=== PATIENT | female | born 1980 | race Caucasian/White ===

== ENCOUNTER 2024-12-01 08:14 | Emergency (ER) | payer SELFPAY ==
[2024-12-01 08:18] VITALS: BP 169/87; PULSE 78; RESP 20; TEMP 36.3; O2SAT 98
--- NOTE | 2024-12-01 08:19 | XR_ITS ---
WS: [id number] Exam: XR hip LT 2-3V wo/w pel* [id number] Date/Time of Exam: 12/01/2024 8:21 AM Reason For Exam: hip pain There is ill-defined osseous destruction of the upper metadiaphysis of the RIGHT femur. A pathologic nondisplaced fracture is noted. There is periosteal calcification and possible associated soft tissue mass. Differential considerations would include metastatic disease, primary bone malignancy or osteomyelitis. The hip joint itself is preserved. XR/XR hip LT 2-3V wo/w pel* [id number] IMPRESSION: 1. Ill-defined area of osseous destruction involving the upper metadiaphysis of the femur with periosteal calcification and probable associated soft tissue ma ss. There appears to be a nondisplaced pathologic fracture through this area. D ifferential considerations would include metastatic disease, primary bone malig sailaja or osteomyelitis.
--- NOTE | 2024-12-01 08:20 | W.ED.BACK ---
HPI - Back Pain/Injury General: Chief Complaint: Back Pain/Injury Stated Complaint: Lower Back Pain LT HipPain Time Seen by Provider: 12/01/24 08:17 Source: patient and EMS Mode of arrival: EMS Limitations: no limitations History of Present Illness: 44-year-old female states she been having worsening back pain over the last month. States that the lower back goes down her left side she is actually scheduled for an MRI in [place] today states that when she got up her pain was severe 10 out of 10 has been having some weakness in her left leg denies any fever denies any bowel or bladder incontinence Associated symptoms: Deny abdominal pain, chills, fever(s), nausea or vomiting Related Data Home Medications ?Medication ?Instructions ?Recorded ?Confirmed Kristina's Restful Legs 2 tab sublingual PRN PRN RESTLESS 12/01/24 12/01/24 LEGS Kristina's Restful Legs Pm 2 tab sublingual QPM PRN LEG CRAMPS 12/01/24 12/01/24 clonazepam 1 mg tablet 1 mg PO DAILY PRN Anxiety 12/01/24 12/01/24 ibuprofen 800 mg tablet 800 mg PO Q6H PRN Pain 12/01/24 12/01/24 magnesium glycinate 100 mg (as 100 mg PO BID 12/01/24 12/01/24 glycinate) tablet omega 4-rdj-hzy-fish oil 60 mg-90 1 cap PO DAILY 12/01/24 12/01/24 mg-500 mg capsule (Fish Oil) tizanidine 4 mg tablet 4 mg PO QID PRN Pain 12/01/24 12/01/24 turmeric 400 mg capsule 1 mg PO BID 12/01/24 12/01/24 Review of Systems Const: Denies: fever(s), chills, body aches or change in appetite ENMT: Denies: throat pain or dental pain Card: Denies: chest pain Resp: Denies: dyspnea GI: Denies: abdominal pain, nausea, vomiting or diarrhea Musc: Reports: back pain; Denies: neck pain Skin/Breast: Denies: rash Neuro: Denies: headache(s) Physical Exam Const: COMMON NORMALS: no acute distress, patient oriented x3 and healthy appearing HENMT: COMMON NORMALS: normocephalic and atraumatic HEAD & SCALP: normocephalic and atraumatic Eye: COMMON NORMALS: conjunctivae normal CONJUNCTIVA: Yes conjunctivae normal Neck/C-Spine: COMMON NORMALS: full ROM and supple Chest: COMMONS NORMALS: normal inspection of the chest Resp: COMMON NORMALS: normal respiratory effort and No use of accessory muscles Cardio: COMMON NORMALS: regular rate RATE: regular rate Back/Pelvis: OTHER: Tenderness noted left lower back distal pulses of the left leg intact sensations intact Extremity: COMMON NORMALS: normal to inspection and full ROM Neuro: COMMON NORMALS: patient oriented x3, moves all extremities and no focal motor deficits Psych: COMMON NORMALS: mental status grossly normal, Normal thought process present and cooperative THOUGHT PROCESS: Normal thought process present Skin: COMMON NORMALS: no rashes or lesions noted and no wounds GENERAL SKIN EXAM: no rashes or lesions noted Course Vital Signs: Vital signs: Vital Signs Temperature 97.4 F L 12/01/24 08:18 Pulse Rate 93 12/01/24 11:55 Respiratory Rate 20 H 12/01/24 08:18 Blood Pressure 162/87 12/01/24 11:55 Pulse Oximetry 96 12/01/24 11:55 Oxygen Delivery Me thod Room Air 12/01/24 08:18 MDM - Back Pain/Injury Medical Decision Making Patient presents here with a pathologic left hip fracture did scan her belly has a large ovarian mass likely primary liver mets mets to the spine she has no signs of cord compression I spoke to orthopedist here she likely needs [facility] [place] [facility] who also stated she likely need to go to [facility] I did speak to orthopedics [facility] who is excepting at this time there is a 1 to 2-day wait for bed will admit here in the meantime Medical Records I reviewed the patient's medical records. Labs I reviewed the patient's lab results. 12/01/24 09:04 12/01/24 09:04 Radiology Impressions Hip/Pelvis X-Ray 12/01/24 08:19 IMPRESSION: 1. Ill-defined area of osseous destruction involving the upper metadiaphysis of the femur with periosteal calcification and probable associated soft tissue mass. There appears to be a nondisplaced pathologic fracture through this area. Differential considerations would include metastatic disease, primary bone malignancy or osteomyelitis. Hip CT 12/01/24 08:33 IMPRESSION: 1. Pathological fracture involving the proximal third LEFT femur. 2. Large permeative bone lesion extending over a length of at least 10 cm with extension into the lesser trochanter. Bony expansion with loss of the normal cortex and medullary cavity. Differential includes includes primary bone lesion and metastatic disease. Less likely infection. In this age group likely metastasis. 3. Complex mass partially visualized in the pelvis. Suspect ovarian in etiology. Incompletely visualized mass measures 11 x 13 cm. Suspect ovarian mass until proven otherwise. Consider additional CT abdomen and pelvis follow-up with IV and oral contrast. 4. Additional permeative lesion likely within the sacrum. Abdomen/Pelvis CT 12/01/24 09:25 IMPRESSION: 1. Marked hepatomegaly with diffuse metastatic liver disease. 2. Multiloculated cystic mass with irregular, nodular enhancing septations in the pelvis. Mass measures 16.6 x 11.3 x 13.0 cm. Separate ovaries are not identified. 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 3. No ascites. 4. Extensive bony metastasis. Metastatic changes throughout the lumbar spine and lower thoracic spine, pelvis and LEFT femur. 5. Along with the lytic destructive changes in the lumbar vertebral bodies there is soft tissue mass greatest at L2 and L3 with tumor extending into the psoas muscle. Suspect tumor encroachment into the LEFT L3-4 foramen. No cord compression identified by CT. Laboratory Results WBC 7.00 10^3/uL (3.29-11.43) 12/01/24 09:04 RBC 3.70 10^6/uL (3.85-5.65) L 12/01/24 09:04 Hgb 10.10 g/dL (11.27-16.99) L 12/01/24 09:04 Hct 31.8 % (36-47) L 12/01/24 09:04 MCV 85.9 fl (85-98) 12/01/24 09:04 MCH 27.3 pg (27-33) 12/01/24 09:04 MCHC 31.8 g/dL (30-55) 12/01/24 09:04 RDW 15.3 % (12.1-15.1) H 12/01/24 09:04 Plt Count 276 10^3/cmm (157-399) 12/01/24 09:04 MPV 11.0 fL (7.4-10.4) H 12/01/24 09:04 Neut % (Auto) 73.8 % 12/01/24 09:04 Lymph % (Auto) 13.4 % 12/01/24 09:04 Fajardo % (Auto) 9.1 % 12/01/24 09:04 Eos % (Auto) 0.4 % 12/01/24 09:04 Baso % (Auto) 0.4 % 12/01/24 09:04 Neut # (Auto) 5.16 10^3/uL (1.8-7.7) 12/01/24 09:04 Lymph # (Auto) 0.9 10^3/uL (0.8-4.8) 12/01/24 09:04 Fajardo # (Auto) 0.6 10^3/uL (0.2-0.9) 12/01/24 09:04 Eos # (Auto) 0.0 10^3/uL (0.0-0.8) 12/01/24 09:04 Baso # (Auto) 0.0 10^3/uL (0.0-0.1) 12/01/24 09:04 Nucleated RBC % (auto) 0 % 12/01/24 09:04 Nucleated RBCs # 0.0 /100WBC 12/01/24 09:04 PT 14.40 SECONDS (12.1-14.9) 12/01/24 09:04 INR 1.04 (0.8-1.2) 12/01/24 09:04 Sodium 140 mmol/L (136-145) 12/01/24 09:04 Potassium 3.2 mmol/L (3.5-5.1) L 12/01/24 09:04 Chloride 103 mmol/L (98-107) 12/01/24 09:04 Carbon Dioxide 20 mmol/L (22-29) L 12/01/24 09:04 Anion Gap 20.2 (5-19) H 12/01/24 09:04 BUN 12 mg/dL (6-20) 12/01/24 09:04 Creatinine 0.6 mg/dL (0.5-0.9) 12/01/24 09:04 GFR Calculation 107.6 mL/min (90-130) 12/01/24 09:04 Glucose 86 mg/dL (65-115) 12/01/24 09:04 Calculated Osmolality 289 mOsm/kg (285-295) 12/01/24 09:04 Calcium 8.7 mg/dL (8.5-10.5) 12/01/24 09:04 Total Bilirubin 0.6 mg/dL (0.15-1.2) 12/01/24 09:04 AST 49 U/L (0-32) H 12/01/24 09:04 ALT 18 U/L (0-33) 12/01/24 09:04 Alkaline Phosphatase 266 U/L (35-105) H 12/01/24 09:04 Total Protein 6.5 g/dL (6.6-8.7) L 12/01/24 09:04 Albumin 3.3 g/dL (3.5-5.2) L 12/01/24 09:04 Globulin 3.2 g/dL (1.3-4.6) 12/01/24 09:04 All radiology interpretation(s) finalized by discharge Discharge Plan Discharge Patient Disposition: Admitted As Inpatient Clinical Impression: Pathologic hip fracture, Mass of ovary Condition: Stable Coding Level of Care Code ED [employer] for Michelle Hendricks
--- NOTE | 2024-12-01 08:33 | CT_ITS ---
WS: [id number] CT LEFT HIP, NONCONTRAST HISTORY: hip pain Technique: All CT scans at [facility] use at least one of these dose optimization techniques: automated exposure control; mA and/or kV adjustment per patient size (includes targeted exams where dose is matched to clinical indication); or iterative reconstruction. DLP: 610.68 mGy.cm COMPARISON: Radiograph 12/01/2024 Pathological fracture involving the proximal LEFT femur. There is a large permeative, moth-eaten destructive bone lesion with bony expansion extending over greater than 10 cm in length involving the proximal LEFT femur. Bony expansion with fracture line extending completely through the bone. Soft tissue tumor widening the medullary cavity. Numerous displaced bone fragments. Femoral head remains normally seated within the acetabulum. No destruction of the femoral head. Bone lesion does extend into the lesser trochanter. Cystic mass with septations and heterogeneity noted within the pelvis. There is displacement of the urinary bladder. Only a small portion of the mass is identified. Mass measures approximately 11 x 13 cm. No adenopathy at the LEFT inguinal region. Possible additional permeative lesion involving the sacrum. CT/CT hip LT wo con* [id number] IMPRESSION: 1. Pathological fracture involving the proximal third LEFT femur. 2. Large permeative bone lesion extending over a length of at least 10 cm with extension into the lesser trochanter. Bony expansion with loss of the normal c ortex and medullary cavity. Differential includes includes primary bone lesion and metastatic disease. Less likely infection. In this age group likely metasta sis. 3. Complex mass partially visualized in the pelvis. Suspect ovarian in etiolog y. Incompletely visualized mass measures 11 x 13 cm. Suspect ovarian mass until proven otherwise. Consider additional CT abdomen and pelvis follow-up with IV and oral contrast. 4. Additional permeative lesion likely within the sacrum.
[2024-12-01] MEDS: ketorolac 30 mg/mL INJ IVP (08:34)
[2024-12-01] MEDS: HYDROmorphone 0.5 MG/0.5 ML INJ IVP (08:35)
[2024-12-01] MEDS: dexamethasone 10 mg/mL INJ IVP (08:36)
[2024-12-01 09:24] LABS: Basophils % 0.4 %; Eosinophils % 0.4 %; Hematocrit 31.8 % (36-47); Lymphocytes # 0.9 10^3/uL (0.8-4.8); Lymphocytes % 13.4 %; Mean Corpuscular HGB Conc 31.8 g/dL (30-55); Mean Corpuscular Hemoglobin 27.3 pg (27-33); Mean Corpuscular Volume 85.9 fl (85-98); Monocytes # 0.6 10^3/uL (0.2-0.9); Monocytes % 9.1 %; Neutrophils # 5.16 10^3/uL (1.8-7.7); Neutrophils % 73.8 %; Nucleated Red Blood Cells % 0 %; Platelet Count 276 10^3/cmm (157-399); Red Cell Distribution Width 15.3 % (12.1-15.1)
--- NOTE | 2024-12-01 09:25 | CT_ITS ---
WS: [id number] CT ABDOMEN AND PELVIS WITH CONTRAST HISTORY: abdominal pain TECHNIQUE: Imaging performed of the abdomen and pelvis with IV contrast. Single phase imaging of the abdomen. Coronal and sagittal reformats are submitted. All CT scans at [facility] use at least one of these dose optimization techniques: automated exposure control; mA and/or kV adjustment per patient size (includes targeted exams where dose is matched to clinical indication); or iterative reconstruction. IV CONTRAST: Omnipaque 350; 100 mL IV. Oral contrast: Yes. DLP: 1038.58 mGy.cm COMPARISON: CT head 12/01/2024. Lower thorax: Lung bases are clear. Heart is normal size. No hiatal hernia. Liver/biliary system: Liver is markedly enlarged measuring 21.6 cm in length. Numerous, confluent low-attenuation masses throughout the liver consistent with metastatic disease. Central portal vein is small. Limited opacification of the portal veins due to injection. No obvious thrombus is identified. Gallbladder: Normal. No gallstones or wall thickening. No pericholecystic fluid. Pancreas: Normal size pancreas and pancreatic duct. No adjacent inflammation. Spleen: Normal size spleen. No mass or infarct. Adrenal glands: Normal. Right kidney: Normal. Left kidney: Cortical hypodensity superior pole too small to characterize measures 6 mm. No renal obstruction. Aorta: Mild atherosclerosis. Lymphadenopathy: None. Free fluid: None. GI tract: Normally distended stomach. No small bowel obstruction. Only limited oral contrast has been provided in the proximal small bowel. Appendix is not definitely identified. Abdominal wall: Unremarkable abdominal wall. No hernia. Pelvis: Multiloculated mass with cystic and solid component centered in the pelvis and extending just greater to the LEFT of midline. Mass measures 16.6 x 11.3 x 13.0 cm. There is nodular, irregular enhancement involving the septa components of the loculations. Uterus is being displaced anteriorly and to the LEFT. This mass is inseparable from the uterus. No ascites identified. Separate ovaries are not identified. Bones: Patient has extensive metastatic disease throughout the visualized spine and pelvis. Combination of lytic and sclerotic changes involving essentially all the vertebral bodies. Most significant involvement at L2 and L3. Metastatic disease throughout the bones of the pelvis and proximal LEFT femur. There is a solid component involving the L3 vertebral body which extends to the LEFT of the vertebral body encroaching upon the psoas muscle. Smaller soft tissue component at L2. Suspect there is tumor encroachment into the LEFT L3-[address]/CT abdomen pelvis w con* [id number] IMPRESSION: 1. Marked hepatomegaly with diffuse metastatic liver disease. 2. Multiloculated cystic mass with irregular, nodular enhancing septations in the pelvis. Mass measures 16.6 x 11.3 x 13.0 cm. Separate ovaries are not ident ified. 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 3. No ascites. 4. Extensive bony metastasis. Metastatic changes throughout the lumbar spine a nd lower thoracic spine, pelvis and LEFT femur. 5. Along with the lytic destructive changes in the lumbar vertebral bodies the re is soft tissue mass greatest at L2 and L3 with tumor extending into the psoa s muscle. Suspect tumor encroachment into the LEFT L3-4 foramen. No cord compre ssion identified by CT.
[2024-12-01 09:39] LABS: INR 1.04 (0.8-1.2)
[2024-12-01 09:46] LABS: Alanine Aminotransferase 18 U/L (0-33); Albumin Level 3.3 g/dL (3.5-5.2); Alkaline Phosphatase 266 U/L (35-105); Anion Gap 20.2 (5-19); Aspartate Amino Transferase 49 U/L (0-32); Blood Urea Nitrogen 12 mg/dL (6-20); Calcium 8.7 mg/dL (8.5-10.5); Carbon Dioxide 20 mmol/L (22-29); Chloride 103 mmol/L (98-107); Globulin 3.2 g/dL (1.3-4.6); Glomerular Filtration Rate 107.6 mL/min (90-130); Glucose 86 mg/dL (65-115); Osmolality Calculated 289 mOsm/kg (285-295); Potassium 3.2 mmol/L (3.5-5.1); Sodium 140 mmol/L (136-145); Total Bilirubin 0.6 mg/dL (0.15-1.2); Total Protein 6.5 g/dL (6.6-8.7)
[2024-12-01] MEDS: HYDROmorphone 0.5 MG/0.5 ML INJ 1 MG IVP ×3 (09:50→16:07)
[2024-12-01] MEDS: iohexol 350 mg/mL 500 mL Btl (per mL) PO (09:54)
[2024-12-01] MEDS: iohexol 350 mg/mL 500 mL Btl (per mL) IV (10:40)
[2024-12-01 11:55] VITALS: BP 162/87; PULSE 93; O2SAT 96
--- NOTE | 2024-12-01 13:50 | DCPLANNER ---
[facility]- No beds, [facility] -No Beds, [facility] needs higher level of care, [facility] no beds, [facility] needs higher level of care. C accepted waiting on bed will be admitted until bed ready,
[2024-12-01 14:45] VITALS: BP 150/84; PULSE 87; O2SAT 98
--- NOTE | 2024-12-01 15:25 | PM.CONSULT ---
Providers/Reason For Consult Consulting Physician/Specialty*: Sue Bal MD / Hospitalist Reason for Consult*: pathological fracture Requesting Physician: José Miguel Reyes MD History of Present Illness History of Present Illness Koby Monterroso is a 44 year old female with a past medical history of orbital melanoma which was diagnosed in 2018. She states that she had radiation to the left eye at that time. She was not considered to be a chemotherapeutic candidate. States that she never had a biopsy however was told that the kind of cancer she has is not amenable to any kind of chemotherapy. Since July 2024 she has been experiencing increasing back and hip pain. She initially attributed it to the cold weather, thought she may have had hip synovitis. She has been visiting with physical therapy and getting treatment. Her pain continued to worsen. 2 days ago she felt a pop in her left leg and thereafter needed to ambulate with crutches. She went into the [facility] clinic where she was evaluated and recommended to undergo an urgent MRI. She plan to do it this morning, however shortly after waking up she was unable to bear weight on the left lower extremity. Is brought her into the emergency room where she was found to have diffuse skeletal metastases and liver mets with a pathological fracture involving the proximal third of the left femur. She needs specialized Ortho wound care and is being transferred to [facility]. Hospitalist were asked to consult as there was no immediate bed available at [facility] for the transfer. Review of Systems General: Reports: 10 or more systems reviewed and unremarkable except in HPI and below Const: Denies: fever(s), chills or body aches Eyes: Denies: change in vision, blurry vision or photophobia ENMT: Reports: hoarseness; Denies: throat pain, enlarged tonsils, odynophagia or nasal congestion Card: Denies: chest pain, palpitations, irregular heart rhythm, edema, swelling of feet/ankles, lightheadedness, pre-syncope, dyspnea on exertion or orthopnea Resp: Denies: dyspnea, productive cough, non-productive cough, wheezing, stridor, pain on inspiration, change in phlegm color, hemoptysis or chest congestion GI: Denies: abdominal pain, nausea, vomiting, hematemesis, coffee ground emesis, dysphagia, heartburn, diarrhea, constipation, GI cramping, change in stool character, hematochezia or melena : Denies: flank pain, difficulty voiding, dysuria, urinary frequency, urinary urgency, urinary hesitancy or hematuria Musc: Denies: neck pain, back pain, extremity pain, joint swelling, joint warmth or deformity Neuro: Denies: headache(s), numbness in extremities, weakness in extremities, sensory changes, difficulty walking, frequent falls, dizziness, vertigo, behavioral changes, Slurred speech present or seizure-like activity Psych: Denies: anxiety, depression, suicidal ideation or homicidal ideation Endo: Denies: polyuria, polydipsia, tired all the time, cold intolerance or hot flashes Petr/Lymph: Denies: easy bruising or easy bleeding Medications/Allergies Home Medications ?Medication ?Instructions ?Recorded ?Confirmed ?Last Taken ?Type Kristina's Restful Legs 2 tab sublingual PRN PRN RESTLESS 12/01/24 12/01/24 11/30/24 History LEGS Kristina's Restful Legs Pm 2 tab sublingual QPM PRN LEG CRAMPS 12/01/24 12/01/24 11/30/24 History clonazepam 1 mg tablet 1 mg PO DAILY PRN Anxiety 12/01/24 12/01/24 12/01/24 History ibuprofen 800 mg tablet 800 mg PO Q6H PRN Pain 12/01/24 12/01/24 12/01/24 05:00 History magnesium glycinate 100 mg (as 100 mg PO BID 12/01/24 12/01/24 11/30/24 History glycinate) tablet omega 3-mbf-pve-fish oil 60 mg-90 1 cap PO DAILY 12/01/24 12/01/24 11/30/24 History mg-500 mg capsule (Fish Oil) tizanidine 4 mg tablet 4 mg PO QID PRN Pain 12/01/24 12/01/24 12/01/24 05:00 History turmeric 400 mg capsule 1 mg PO BID 12/01/24 12/01/24 11/30/24 History Vitals/I&O/Wt Last Vital Signs Temp 97.4 F L 12/01/24 08:18 Pulse 87 12/01/24 14:45 Resp 20 H 12/01/24 08:18 BP 150/84 12/01/24 14:45 Pulse Ox 98 12/01/24 14:45 O2 Del Method Room Air 12/01/24 08:18 Weight last 48 hrs Weight 106.594 kg Physical Exam Narrative: General: No acute distress, AO x3 HEENT: PERRLA, pupils bilaterally equal and reactive, pallors not present Chest: Normal vesicular breath sounds, no added sounds, equal good air entry bilaterally CVS: S1-S2 regular, no murmurs, no tachycardia, no gallops, no rubs Abdomen: Soft, nontender, no organomegaly, bowel sounds present Neuro: No focal deficits, no facial deformity, AO x3, power 5/5 in all limbs Extremities: left leg extrenally rotated Data 12/01/24 09:04 12/01/24 09:04 Other Labs: Radiology Impressions Hip/Pelvis X-Ray 12/01/24 08:19 IMPRESSION: 1. Ill-defined area of osseous destruction involving the upper metadiaphysis of the femur with periosteal calcification and probable associated soft tissue mass. There appears to be a nondisplaced pathologic fracture through this area. Differential considerations would include metastatic disease, primary bone malignancy or osteomyelitis. Hip CT 12/01/24 08:33 IMPRESSION: 1. Pathological fracture involving the proximal third LEFT femur. 2. Large permeative bone lesion extending over a length of at least 10 cm with extension into the lesser trochanter. Bony expansion with loss of the normal cortex and medullary cavity. Differential includes includes primary bone lesion and metastatic disease. Less likely infection. In this age group likely metastasis. 3. Complex mass partially visualized in the pelvis. Suspect ovarian in etiology. Incompletely visualized mass measures 11 x 13 cm. Suspect ovarian mass until proven otherwise. Consider additional CT abdomen and pelvis follow-up with IV and oral contrast. 4. Additional permeative lesion likely within the sacrum. Abdomen/Pelvis CT 12/01/24 09:25 IMPRESSION: 1. Marked hepatomegaly with diffuse metastatic liver disease. 2. Multiloculated cystic mass with irregular, nodular enhancing septations in the pelvis. Mass measures 16.6 x 11.3 x 13.0 cm. Separate ovaries are not identified. 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 3. No ascites. 4. Extensive bony metastasis. Metastatic changes throughout the lumbar spine and lower thoracic spine, pelvis and LEFT femur. 5. Along with the lytic destructive changes in the lumbar vertebral bodies there is soft tissue mass greatest at L2 and L3 with tumor extending into the psoas muscle. Suspect tumor encroachment into the LEFT L3-4 foramen. No cord compression identified by CT. Laboratory Results WBC 7.00 10^3/uL (3.29-11.43) 12/01/24 09:04 RBC 3.70 10^6/uL (3.85-5.65) L 12/01/24 09:04 Hgb 10.10 g/dL (11.27-16.99) L 12/01/24 09:04 Hct 31.8 % (36-47) L 12/01/24 09:04 MCV 85.9 fl (85-98) 12/01/24 09:04 MCH 27.3 pg (27-33) 12/01/24 09:04 MCHC 31.8 g/dL (30-55) 12/01/24 09:04 RDW 15.3 % (12.1-15.1) H 12/01/24 09:04 Plt Count 276 10^3/cmm (157-399) 12/01/24 09:04 MPV 11.0 fL (7.4-10.4) H 12/01/24 09:04 Neut % (Auto) 73.8 % 12/01/24 09:04 Lymph % (Auto) 13.4 % 12/01/24 09:04 Whitfield % (Auto) 9.1 % 12/01/24 09:04 Eos % (Auto) 0.4 % 12/01/24 09:04 Baso % (Auto) 0.4 % 12/01/24 09:04 Neut # (Auto) 5.16 10^3/uL (1.8-7.7) 12/01/24 09:04 Lymph # (Auto) 0.9 10^3/uL (0.8-4.8) 12/01/24 09:04 Whitfield # (Auto) 0.6 10^3/uL (0.2-0.9) 12/01/24 09:04 Eos # (Auto) 0.0 10^3/uL (0.0-0.8) 12/01/24 09:04 Baso # (Auto) 0.0 10^3/uL (0.0-0.1) 12/01/24 09:04 Nucleated RBC % (auto) 0 % 12/01/24 09:04 Nucleated RBCs # 0.0 /100WBC 12/01/24 09:04 PT 14.40 SECONDS (12.1-14.9) 12/01/24 09:04 INR 1.04 (0.8-1.2) 12/01/24 09:04 Sodium 140 mmol/L (136-145) 12/01/24 09:04 Potassium 3.2 mmol/L (3.5-5.1) L 12/01/24 09:04 Chloride 103 mmol/L (98-107) 12/01/24 09:04 Carbon Dioxide 20 mmol/L (22-29) L 12/01/24 09:04 Anion Gap 20.2 (5-19) H 12/01/24 09:04 BUN 12 mg/dL (6-20) 12/01/24 09:04 Creatinine 0.6 mg/dL (0.5-0.9) 12/01/24 09:04 GFR Calculation 107.6 mL/min (90-130) 12/01/24 09:04 Glucose 86 mg/dL (65-115) 12/01/24 09:04 Calculated Osmolality 289 mOsm/kg (285-295) 12/01/24 09:04 Calcium 8.7 mg/dL (8.5-10.5) 12/01/24 09:04 Total Bilirubin 0.6 mg/dL (0.15-1.2) 12/01/24 09:04 AST 49 U/L (0-32) H 12/01/24 09:04 ALT 18 U/L (0-33) 12/01/24 09:04 Alkaline Phosphatase 266 U/L (35-105) H 12/01/24 09:04 Total Protein 6.5 g/dL (6.6-8.7) L 12/01/24 09:04 Albumin 3.3 g/dL (3.5-5.2) L 12/01/24 09:04 Globulin 3.2 g/dL (1.3-4.6) 12/01/24 09:04 A&P Assessment and plan (1) Metastasis to bone: (2) Pathologic hip fracture: (3) Metastasis to liver: Plan 44-year-old lady presenting today with several months of pain involving the back and the hips, found today to have a pathological fracture of the left hip with diffuse metastases involving the bones and liver. Given the past history of orbital melanoma, likely this is the primary. Patient needs surgical fixation for the left femur fracture, however need specialized Ortho oncology for which she is being transferred to [facility]. Hospitalist service consulted in the interim for medical management while patient is waiting in the emergency room Recommend pain control with oxycodone IR 5 mg every 4 hours as needed, Dilaudid 1 mg IV every 4 hours as needed, Toradol 15 mg IV every 6 hours as needed. Tizanidine may be continued at home dosing. Patient denies any known history of hypertension. Systolic blood pressure here noted to be between 150-170, likely as a result of anxiety and pain. Will use hydralazine 5 mg IV every 4 hours as needed if needed for SBP greater than 160. Patient is awaiting transfer to [facility] at this present time. I have been updated that she has just received a bed and will be transferring there shortly. PDMP PDMP Reviewed: Not Reviewed Coding Level of Care Code Acute Code for Chg Fwd High MDM includes number and complexity of problems actively addressed during encounter, amount and/or complexity of data reviewed/ordered and described risk of complication, morbidity or mortality of management as documented Diagnoses Metastasis to bone C79.51 Pathologic hip fracture M84.459A Metastasis to liver C78.7
[2024-12-01] MEDS: oxyCODONE 5 mg IR Tab/Cap PO (16:49)
[2024-12-01 17:03] VITALS: BP 148/87; PULSE 83; O2SAT 91
[2024-12-01 17:18] VITALS: BP 148/87; PULSE 83; O2SAT 91
== END 2024-12-01 17:20 | disposition admitted as inpatient to this hospital (09) ==
PROVIDERS: Emergency Provider Emergency Medicine
DX: S72.002A Fracture of unspecified part of neck of left femur, initial encounter for closed fracture (principal); N83.209 Unspecified ovarian cyst, unspecified side; X58.XXXA Exposure to other specified factors, initial encounter
CPT/HCPCS: 73502; 73700; 74177; 80053; 85025; 85610; 96374; 96375; 96376; 99285; J1100; J1171; J1885; J9999